=== PATIENT | male | born 1975 | race Caucasian/White ===

== ENCOUNTER 2020-05-19 19:12 | Emergency (ER) | payer OTHER ==
[2020-05-19 19:22] VITALS: BP 155/90
--- NOTE | 2020-05-19 20:13 | ER Document Report ---
HPI - HPI Patient complains to provider of: Laceration to the forehead Time Seen by Provider: 05/19/20 19:58 Onset: Just prior to arrival Onset/Duration: Sudden Quality of pain: Achy Pain Level: 1 Context: 44-year-old patient known to ED for complaint of a laceration to his forehead. He states he was working out with a resistance band the band snapped back hitting him in the forehead. He states he thinks the metal part of the resistant band hit him in the forehead causing the laceration. He states that it did cause him to be dazed for a few minutes but did not lose any consciousness. He states it was more because of the pain and the bleeding to his face that made him dazed. He states he did not have any loss of consciousness any nausea vomiting or any change in orientation. Patient is alert oriented respirations regular nonlabored speaking in full sentences. He does have a laceration to the center of his forehead that is not bleeding at this time. Associated Symptoms: Other - Laceration to the forehead Exacerbated by: Denies Relieved by: Denies Recently seen / treated by doctor: No - ROS ROS below otherwise negative: Yes - CONSTITUTIONAL Constitutional: DENIES: Fever, Chills - EENT EENT: DENIES: Sore Throat, Ear Pain, Nasal Drainage-Clear, Nasal Drainage- Purulent, Congestion, Eye problems - NEURO Neurology: REPORTS: Headache. DENIES: Weakness, Vision blurred, Dizzinesss / Vertigo - CARDIOVASCULAR Cardiovascular: DENIES: Chest pain - RESPIRATORY Respiratory: DENIES: Trouble Breathing, Coughing - GASTROINTESTINAL Gastrointestinal: DENIES: Abdominal Pain, Nausea, Patient vomiting, Diarrhea, Constipation, Black / Bloody Stools - URINARY Urinary: DENIES: Dysuria, Urgency, Frequency - REPRODUCTIVE Reproductive: DENIES: :, Postmenopausal, Abnormal bleeding / discharge - MUSCULOSKELETAL Musculoskeletal: DENIES: Extremity pain, Back Pain, Neck Pain, Swelling - DERM Skin Color: Normal Skin Problems: Open to Air - Laceration to the forehead Past Medical History - General Information source: Patient - Social History Smoking Status: Never Smoker Chew tobacco use (# tins/day): No Frequency of alcohol use: 1 beer nightly Drug Abuse: None Occupation: economics consultant Lives with: Alone - Along with children Family History: Reviewed & Not Pertinent - Past Medical History Cardiac Medical History: Reports: Hx Hypertension Pulmonary Medical History: Reports: None EENT Medical History: Reports: None Neurological Medical History: Reports: None Endocrine Medical History: Reports: None Renal/ Medical History: Reports: None Malignancy Medical History: Reports None GI Medical History: Reports: None Musculoskeletal Medical History: Reports None Skin Medical History: Reports None Psychiatric Medical History: Reports: None Traumatic Medical History: Reports: None Infectious Medical History: Reports: None Surgical Hx: Negative Past Surgical History: Reports: None - Immunizations Immunizations up to date: Yes Hx Diphtheria, Pertussis, Tetanus Vaccination: Yes Vertical Provider Document - CONSTITUTIONAL Agree With Documented VS: Yes Exam Limitations: No Limitations General Appearance: WD/WN, No Apparent Distress - INFECTION CONTROL TRAVEL OUTSIDE OF THE [place] IN LAST 30 DAYS: No - HEENT Notes: Laceration to the center of his forehead about 2 cm. He states a resistance b and hit him in the forehead and he thinks it was the metal part of the resistance band that caused a laceration. - NECK Neck: Normal Inspection, Supple, Thyroid Normal - RESPIRATORY Respiratory: Breath Sounds Normal, No Respiratory Distress, Chest Non-Tender - BACK Back: Normal Inspection - MUSCULOSKELETAL/EXTREMETIES Musculoskeletal/Extremeties: MAEW, FROM, Non-Tender - NEURO Level of Consciousness: Awake, Alert, Appropriate Motor/Sensory: No Motor Deficit, No Sensory Deficit, No Pronator Drift Deep Tendon Reflexes: 2+ - DERM Integumentary: Laceration - Center of his forehead 2 cm in length bleeding under control. Course - Re-evaluation Re-evalutation: 05/19/20 22:18 Patient returned shortly after discharge and had a moderate amount of swelling to the area but there was no bleeding. I did instruct patient to use Tylenol and ice pack to the area. Patient has no other change in condition. He was instructed to return to the ED if the swelling increased after using ice pack to the area. Patient verbalized understanding and agreement with treatment plan and was discharged home. - Vital Signs Vital signs: Temp Pulse Resp BP Pulse Ox 98.3 F 85 16 155/90 H 100 05/19/20 19:58 05/19/20 19:21 05/19/20 19:21 05/19/20 19:21 05/19/20 19:21 Procedures - Laceration/Wound Repair Center of forehead Time completed: 20:10 Wound length (cm): 2 Wound's Depth, Shape: Linear Laceration pre-procedure: Sterile PPE donned, Shur-Clens applied Anesthetic type: Other Volume Anesthetic (mLs): 0 Wound explored: Clean, No foreign body removed, Contaminated Irrigated w/ Saline (mLs): 70 Wound Repaired With: Dermabond Discharge - Discharge Clinical Impression: Laceration of forehead Qualifiers: Encounter type: initial encounter Qualified Code(s): S01.81XA - Laceration without foreign body of other part of head, initial encounter Head injury Qualifiers: Encounter type: initial encounter Qualified Code(s): S09.90XA - Unspecified injury of head, initial encounter Condition: Stable Disposition: HOME, SELF-CARE Additional Instructions: Facial Laceration A laceration on the face usually heals quickly. Our treatment goal will be to avoid an unsightly scar or stitch-zamora. Your cut has been closed with the best techniques to avoid scarring, but a great deal depends on how well you protect the laceration -- and on your inherited tendency to scar. As facial cuts are usually caused by a blunt injury, it's usually best to rest for a day to avoid swelling. Do not allow any bumping or rubbing of the area. Keep the stitches dry. Follow the treatment plan the doctor has discussed with you and DO NOT DELAY getting the stitches out. Once stitches are removed, continue to protect the area from trauma and sunlight (use a sunscreen) for about six months. If any signs of infection occur (swelling, redness, increasing tenderness, red streaks, tender lumps in the neck or near the ear on the side of the laceration, or fever), see the doctor immediately. Head Injury Precautions At this point, there is no evidence that your head injury is serious. Observation is necessary, however. Take only clear liquids for the first few hours, unless told otherwise by the doctor. If no pain medication was prescribed, you may take acetaminophen according to the directions on the bottle. Do not take any medication that may alter your level of alertness (unless you've discussed it with the doctor first). Limit activity for the first 24 hours. Bed rest is best. During the first 24 hours, check to see approximately every two to three hours that the patient is easily arousable, responds normally, and can perform common tasks such as walking without difficulty. Contact your doctor or go to the hospital if any of the following things occur: Persistent vomiting, difficulty in arousing the patient, worsening or continued headache, or failure to improve as expected. Head injuries can cause symptoms that persist for a few days or even a few weeks. Dermabond (Skin Adhesive Closure) Skin adhesive (such as Dermabond) is a quick-drying glue that remains slightly flexible while it holds wound edges together. It can substitute for stitches on some cuts. The film will usually fall off the skin after 5 to 10 days. Keep the wound area clean and dry. Do not soak or scrub the wound. Don't swim. You can shower briefly after 24 hours. Gently blot the area dry with a soft towel. Don't apply ointments. If there is a dressing, change it immediately if it gets wet. Do not place tape directly over the adhesive film, because the tape may pull the film off your skin as you remove it. Don't bump the wound area. If there's risk of injury, keep the area well- padded. Avoid stretching of the skin. Do not scratch or pick at the adhesive film. Avoid prolonged exposure to sunlight or tanning lamps. Return if there is increasing pain, swelling, redness, or drainage, or if the wound edges seem to open or separate. SOAP CLEANSING: Gently wash the wound daily using a mild soap (like Ivory, Phisoderm, Neutrogena). Use warm water, rubbing gently until all debris, ooze, and crusting have been washed from the wound. Allow to dry briefly (about 10 minutes) after cleaning. Repeat this cleansing at least three times a day for the first two days and then once or twice a day. FOLLOW-UP CARE: Please return in ___3__ days for an infection check and dressing change. If you have been referred to another physician for follow-up care, call that physicians office for an appointment as you were instructed. If you ex perience a significant change in your laceration, or if you are concerned there may be an infection (swelling, redness, drainage, increasing tenderness, red streaks, tender lumps in the armpit or groin above the laceration, or fever), return to the Emergency Department immediately re-evaluation. Forms: Elevated Blood Pressure
== END 2020-05-19 20:19 | disposition home or self-care (01) ==
LOC: ER 19:12
PROC: 0HQ1XZZ Repair Face Skin, External Approach (ICD-10-PCS; principal; 2020-05-19)
DX: S01.81XA Laceration without foreign body of other part of head, initial encounter (principal); S09.90XA Unspecified injury of head, initial encounter; R51 Headache; W22.8XXA Striking against or struck by other objects, initial encounter; Y93.B9 Activity, other involving muscle strengthening exercises; I10 Essential (primary) hypertension
CPT/HCPCS: 99282